=== PATIENT | male | born 1960 | race Caucasian/White ===

== ENCOUNTER 2022-03-23 15:23 | Emergency (ER) | payer OTHER, SELFPAY ==
--- NOTE | ~2022-03-23 | XR_ITS ---
EXAM: XR thoracic spine 3V DATE: 03/23/2022 16:01 HISTORY: upper back pain, no known injury . COMPARISON: None available. FINDINGS: Vertebral body alignment intact. Mild scoliosis. Vertebral body heights preserved. Multile dai degenerative disc disease.. No traumatic malalignment or fracture. Visualized lung parenchyma is clear. IMPRESSION: No acute fracture or traumatic malalignment detected in the thoracic spine. Reviewed, dictated and finalized at location K. IMPRESSION: No acute fracture or traumatic malalignment detected in the thoraci c spine.
[2022-03-23 15:36] VITALS: BP 122/73; PULSE 88; RESP 18; TEMP 36.6; O2SAT 100
--- NOTE | 2022-03-23 15:51 | ED.BACK ---
HPI - Back Pain/Injury General Chief Complaint: Back Pain/Injury Stated Complaint: back spasms Time Seen by Provider: 03/23/22 15:26 Source: patient Mode of arrival: ambulatory Limitations: no limitations History of Present Illness HPI Narrative: 61-year-old male presents to [facility] with complaints of mid back pain and spasms intermittently for the past 25 years. Patient reports that symptoms became worse 1 week ago. Patient denies recent injury. Patient has been taking [id number] ibuprofen and Tylenol with minimal relief. Patient reports that he has had intermittent numbness and tingling to his bilateral fingers for the past year. Patient currently is a primary care provider. Patient denies bowel or bladder problems. Patient reports that the spasming is worse if he works longer shifts at his job. Patient denies fever, body aches, chills, nausea, vomiting or diarrhea. Patient reports that he last had x-rays and MRI completed approximately 20 years ago but is unsure of the results. MD elicited complaint: back pain Pertinent past history: prior back pain Onset (ago): week(s) (1) Timing: intermittent Quality: spasming Location: thoracic spine Relieving factors: none Treatments prior to arrival: NSAIDS and acetaminophen Work related injury: No Related Data Allergies Allergy/AdvReac Type Severity Reaction Status Date / Time No Known Allergies Allergy Verified 03/23/22 15:42 Review of Systems Constitutional: Constitutional: Denies chills, Denies fatigue, Denies fever(s) and Denies weakness ENT: Denies vertigo and Denies dizziness Cardiovascular: Cardiovascular: Denies chest pain Gastrointestinal: Gastrointestinal: Denies abdominal pain, Denies diarrhea, Denies nausea and Denies vomiting Musculoskeletal: Musculoskeletal: Reports back pain, Denies joint swelling and Denies muscle cramps Integumentary/Breasts: Skin/Breast: Denies rash Neurologic: Denies vertigo and Denies dizziness PMFSH Comments At time of signature, I agree with nursing past medical, surgical, social and family history. There is no relevant family history pertinent to the presenting complaint. Exam Const: General: healthy appearing Nutritional Appearance: well nourished Orientation/consciousness: patient oriented x3 Limitations: no limitations Other: Patient appears jittery at times, spasming of back noted during examination Neck: Neck: normal visual inspection Resp: Effort & Inspection: normal respiratory effort and not labored Auscultation: clear to auscultation bilaterally, no crackles, no rhonchi and no wheezes Cardio: Rate: regular rate Rhythm: regular rhythm Heart sounds: no murmurs GI: Inspection: non-distended Auscultation: normal bowel sounds Back/Spine/Pelvis: Back: no CVA tenderness Other: Pain noted to thoracic region upon palpation. There is mild muscle spasm noted to right mid back. There is no open wounds, bruising, erythema or warmth noted. Skin: General skin exam: normal color Rashes: no rashes Wounds: no wounds Neuro: General: patient oriented x3 Cranial nerves: Yes Nystagmus not present Speech: normal speech Gait exam (Neuro): Normal gait present Extrem: General: normal to inspection, no clubbing, cyanosis or edema and no pedal edema Other: Hand grasps are equal and strong. Psych: Mental Status: mental status grossly normal Affect: normal affect Attitude: cooperative Course Course Level of Care: Express Care Visit Vital Signs Vital signs: Vital Signs Temperature 36.6 C 03/23/22 15:36 Pulse Rate 88 03/23/22 15:36 Respiratory Rate 18 03/23/22 15:36 Blood Pressure 122/73 03/23/22 15:36 Pulse Oximetry 100 03/23/22 15:36 Oxygen Delivery Room Air 03/23/22 15:36 Temperature 36.6 C 03/23/22 15:36 Pulse Rate 88 03/23/22 15:36 Respiratory Rate 18 03/23/22 15:36 Blood Pressure 122/73 03/23/22 15:36 Pulse Oximetry 100 03/23/22 15:36 Oxygen Delivery Room
== END 2022-03-23 16:20 | disposition home or self-care (01) ==
PROVIDERS: Emergency Provider Nurse Practitioner Family
DX: M54.6 Pain in thoracic spine (principal)
CPT/HCPCS: 72072; 99213; G0463

== ENCOUNTER 2024-09-29 21:35 | Emergency (ER) | payer OTHER, SELFPAY ==
--- NOTE | ~2024-09-29 | CT_ITS ---
CT cervical spine wo con Ordering provider: Tyra Goldman MD History: . neck pain . Comparison: None. Technique: CT of the cervical spine was performed without contrast. Sagittal and coronal reformatted images were also obtained and reviewed. Automated exposure control and iterative reconstruction ai hnique were employed. The dose-length product was 424.49 mGy-cm. FINDINGS: VERTEBRAE: No subluxation or acute fracture. The occipital condyles are intact. DISC SPACES: Narrowing of the disc C3-C4, C4-C5, C5-C6 and C6-C7. Multilevel facet joint disease. Mul tilevel uncovertebral joint osteoarthritic changes. Bilateral narrowing of the foramina at the level of C3-C4, C4-C5, C5-C6 and C6-C7. MRI is better for evaluation. PARASPINOUS SOFT TISSUES: Bilateral carotid calcifications.. IMPRESSION: No acute osseous abnormality cervical spine. Multilevel degenerative disc disease. Multilevel intervertebral foraminal narrowing. Reviewed, dictated and finalized at location A.
--- NOTE | ~2024-09-29 | CT_ITS ---
CT thoracic lumbar wo con Ordering provider: Tyra Goldman MD History: . b/l paresthesias . Comparison: None. Technique: CT thoracic spine without contrast. Automated exposure control and iterative reconstructi on technique were employed. The dose-length product was 1580.48 mGy-cm. FINDINGS: VERTEBRAE: Normal height and alignment. No subluxation or visible acute fracture. Degenerative change s of the spine. DISC SPACES: Multilevel degenerative disc disease in the upper and midthoracic area. Multilevel facet joint disease. Spinal canal stenosis seen at the level of C7 T8 with bilateral narrowing of the foramina and nerve r oot compression. Bilateral narrowing of the foramina at the level of T8-T9 and T9-T10 PARASPINOUS SOFT TISSUES: Normal. IMPRESSION: No acute osseous abnormality of the thoracic spine. Multilevel degenerative disc disease. Multilevel intervertebral foraminal narrowing. MRI is better for evaluation. CT thoracic lumbar wo con Ordering provider: Tyra Goldman MD History: 64 years Male with . b/l paresthesias . Comparison: None. Technique: CT lumbar spine without contrast. Automated exposure control and iterative reconstruction technique were employed. The dose-length product was 1580.48 mGy-cm. FINDINGS: VERTEBRAE: Normal height and alignment. No subluxation or visible acute fracture. Sacralization of L5 . DISC SPACES: Narrowing of the disc L3-L4.. Multilevel facet joint disease. Bilateral sacroiliitis. T12-L1: No stenosis. L1-L2: No stenosis. L2-L3: No stenosis. L3-L4: Mild spinal canal stenosis secondary to broad based disc bulge, facet arthropathy, and ligamen elisabeth flavum hypertrophy. Bilateral narrowing of the foramina with root compression. L4-L5: No stenosis. Diffuse disc bulge with bilateral narrowing of the foramina. L5-S1: No stenosis. PARASPINOUS SOFT TISSUES: Mild atheromatous disease of the abdominal aorta. IMPRESSION: Multilevel degenerative disc disease. Multilevel intervertebral foraminal narrowing and with nerve ro ot compression. MRI is better for evaluation. Reviewed, dictated and finalized at location A. IMPRESSION: No acute osseous abnormality of the thoracic spine. Multilevel degenerative disc disease. Multilevel intervertebral foraminal narrowing. MRI is better for evaluation. CT thoracic lumbar wo con Ordering provider: Tyra Goldman MD History: 64 years Male with . b/l paresthesias . Comparison: None. Technique: CT lumbar spine without contrast. Automated exposure control and it erative reconstruction technique were employed. The dose-length product was 158 0.48 mGy-cm. FINDINGS: VERTEBRAE: Normal height and alignment. No subluxation or visible acute fractur e. Sacralization of L5. DISC SPACES: Narrowing of the disc L3-L4.. Multilevel facet joint disease. Bilateral sacroiliitis. T12-L1: No stenosis. L1-L2: No stenosis. L2-L3: No stenosis. L3-L4: Mild spinal canal stenosis secondary to broad based disc bulge, facet ar thropathy, and ligamentum flavum hypertrophy. Bilateral narrowing of the forami na with root compression. L4-L5: No stenosis. Diffuse disc bulge with bilateral narrowing of the foramina . L5-S1: No stenosis. PARASPINOUS SOFT TISSUES: Mild atheromatous disease of the abdominal aorta. IMPRESSION: Multilevel degenerative disc disease. Multilevel intervertebral foraminal narro wing and with nerve root compression. MRI is better for evaluation.
[2024-09-29 21:33] VITALS: BP 148/100; PULSE 132; RESP 16; TEMP 36.6; O2SAT 97
--- NOTE | 2024-09-29 21:38 | ED.BACK ---
HPI - Back Pain/Injury General Chief Complaint: Back Pain/Injury Stated Complaint: Back pain Time Seen by Provider: 09/29/24 21:37 Source: patient and EMS Mode of arrival: EMS Limitations: no limitations History of Present Illness HPI Narrative: Patient presents via EMS. PD had attempted to arrest him at [facility] and he was complaining of what was initially reported as back pain, possibly due to a fall from a tree occuring anywhere from 1 week to 6 months ago by initial reports. Initially reported as beligerant but calm on my assessment. On my exam, patient denies any low back pain when asked multiple times. He states he is having acute neck pain because he hit this area when they were lifting him from his wheelchair. States he has bilateral lower extremity paresthesias along his lower extremities and radiating anteriorly into thighs but denying any saddle anesthesias. He states when he was being moved he was also experiencing pain in his groin because his intestines dropped into his balls. States this has been occuring for awhile but he can always get them to go back in, sometimes has to lean back and maneuver them. No loss of consciousness or seizure. For the baseline pain/issues he has, states he occasionally takes Tylenol or ibuprofen but no meds in general. He notes that he eats asparagus and that helps. He has never officially been told he has neuropathy but had gotten routine lead testing when he used to work at the [employer]. Has not gotten tested lately. Doesn' thave a PCP. Discusses various home remedies including magnesium but also unknown other substances. He did share one 24oz can of alcohol 8.0 (?) earlier today, states it was approximately equal to 2 beers. No fevers. Has been using a wheelchair for the past 3 months, on crutches prior to that for the issues he experiences with his legs and his inguinal hernias. Has never seen a surgeon to discuss hernia repair; does not want surgery. Prefers to heal myself. He states he had previously been on sodium painkillers. Related Data Allergies Allergy/AdvReac Type Severity Reaction Status Date / Time No Known Allergies Allergy Verified 09/29/24 21:41 [facility] Social History Social History Alcohol intake: current Substance use type: marijuana Other substance usage details: smokes 1/4 oz daily since 18yo Additional occupation/education comments: previously worked [employer] Exam Narrative: GENERAL: Well-appearing, well-nourished, and in no acute distress. HEAD: Normocephalic, atraumatic. EYES: Non injected, non icteric ENT: Nares clear, no rhinorrhea or epistaxis. NECK: Supple. No midline tenderness to palpation. Able to flex and extend. Points to an area along midline where he notes a bump; palpation normal without bony step offs. CHEST: Speaking in full sentences. No respiratory distress. HEART: Tachycardic rate and rhythm. . ABDOMEN: Soft, nondistended. No tenderness to palpation. : Bilateral reducible inguinal hernias, L > R. No overlying skin changes. Not taut, rigid. EXTREMITIES: No lower extremity edema. Moves all extremities. SKIN: Warm, dry, no rash. NEURO: No focal deficits. Alert and oriented x3. PSYCH: Odd but Congruent mood and affect. Course Vital Signs Vital signs: Vital Signs Temperature 97.8 F 09/29/24 21:33 Pulse Rate 132 H 09/29/24 21:33 Respiratory Rate 16 09/29/24 21:33 Blood Pressure 148/100 H 09/29/24 21:33 Pulse Oximetry 97 09/29/24 21:33 Oxygen Delivery Room Air 09/29/24 21:33 Temperature 97.8 F 09/29/24 21:33 Pulse Rate 112 H 09/29/24 23:41 Respiratory Rate 15 09/29/24 23:41 Blood Pressure 128/98 H 09/29/24 23:41 Pulse Oximetry 98 09/29/24 23:41 Oxygen Delivery Room Air 09/29/24 21:33 MDM - Back Pain/Injury MDM Narrative Medical decision making narrative: Patient brought in by EMS after reporting pain while being arrested by EMS. Initially reported as back pain, possibly due to falling from a tree at some point 1 week to 6 months ago but patient denies any low back pain at the time of my exam. He reports acute neck pain after being moved, peripheral neuropathy that has been chronic, and bilateral inguinal hernias which have also been present for awhile but which have been and remain reducible. In the emergency department he is afebrile with vital signs notable for tachycardia and hypertension. Imaging as below. Patient given analgesic medication while in the ED (but declining IV/IM). Discussed the need to follow up outpatient with PCP (provided referral) for his chronic issues such as neuropathy, discussion of other concerns like testing for lead exposure/poisoning, and proceeding with possible advanced imaging regarding spinal findings which we discussed. Also discussed the warning signs/features of inguinal hernias that would be cause for concern of a previously reducible hernia becoming incarcerated or strangulated. Patient initially hesitant and trying to negotiate with myself and police and he needs either admitted or let go 'otherwise my intestines will fall out and I'll . Again provided strict ED return precautions and urged follow up, provided general surgeon name/referral to discuss elective operative repair but that currently does not represent a surgical emergency. Otherwise stable for discharge. Fit for confinement paperwork filled out at the request of police. Patient provided written Rx for acetaminophen and ibuprofen. Differential Diagnosis Differential diagnosis: Likely lumbar radiculopathy and other (peripheranl neuropathy; fracture; inguinal hernia spectrum of disorders) Imaging Data Radiologist's impression: Impressions Cervical Spine CT 09/29/24 22:29 IMPRESSION: No acute osseous abnormality cervical spine. Multilevel degenerative disc disease. Multilevel intervertebral foraminal narrowing. Thoracic/Lumbar Spine CT 09/29/24 22:43 IMPRESSION: No acute osseous abnormality of the thoracic spine. Multilevel degenerative disc disease. Multilevel intervertebral foraminal narrowing. MRI is better for evaluation. CT thoracic lumbar wo con Ordering provider: Tyra Goldman MD History: 64 years Male with . b/l paresthesias . Comparison: None. Technique: CT lumbar spine without contrast. Automated exposure control and iterative reconstruction technique were employed. The dose-length product was 1580.48 mGy-cm. FINDINGS: VERTEBRAE: Normal height and alignment. No subluxation or visible acute fracture. Sacralization of L5. DISC SPACES: Narrowing of the disc L3-L4.. Multilevel facet joint disease. Bilateral sacroiliitis. T12-L1: No stenosis. L1-L2: No stenosis. L2-L3: No stenosis. L3-L4: Mild spinal canal stenosis secondary to broad based disc bulge, facet arthropathy, and ligamentum flavum hypertrophy. Bilateral narrowing of the foramina with root compression. L4-L5: No stenosis. Diffuse disc bulge with bilateral narrowing of the foramina. L5-S1: No stenosis. PARASPINOUS SOFT TISSUES: Mild atheromatous disease of the abdominal aorta. IMPRESSION: Multilevel degenerative disc disease. Multilevel intervertebral foraminal narrowing and with nerve root compression. MRI is better for evaluation. Discharge Plan Discharge Clinical Impression: Reducible inguinal hernia, Acute neck pain, Multilevel degenerative disc disease, Peripheral neuropathy Patient Disposition: Home, Self-Care Condition: Stable Instructions: Antibiotic Form, Inguinal Hernia (ED), Peripheral Neuropathy (ED), Degenerative Disc Disease (ED), Acute Neck Pain (ED) Additional Instructions: Because you do not have a primary care physician the name of doctors listed below. They can help you with some measure chronic issues like your neuropathy, desire for investigation of possible lead poisoning, etc. You also had evidence of multilevel degenerative disc disease with foraminal narrowing for which outpatient MRI would be a more sensitive test; your primary care physician can help arrange this. Acetaminophen/Tylenol (maximum 4000 mg per day) is safe to take with NSAIDs (ibuprofen/Motrin) for pain relief. As long as the inguinal hernias are reducible (able to be pushed back in), they are not a problem but you can follow up with the general surgeon listed below if you would like to consider elective repair later. Return if they no longer reduce. Return to the emergency department with any new or worsening symptoms. Patient Language: Bolivian Prescriptions: New ibuprofen 600 mg tablet 600 mg PO TID PRN (Reason: pain) Qty: 30 0RF acetaminophen 500 mg capsule 1,000 mg PO Q6H PRN (Reason: pain) Qty: 30 0RF No Action meloxicam 7.5 mg tablet 7.5 mg PO BID 7 Days Qty: 14 0RF methocarbamol 500 mg tablet 500 mg PO TID PRN (Reason: pain) Qty: 14 0RF Follow-up/Referrals: Amandeep Harris MD [Physician] - (General surgery) PHYSICIAN,SENIOR ADMINISTRATIVE SERVICES OFFICER [Primary Care Provider] - More Monte DO [Physician] - (Family practice/primary care physician) Time of Disposition: 23:21
[2024-09-29] MEDS: ACETAMINOPHEN 500 MG TABLET 1000 MG PO (22:05)
--- OUTSIDE RECORDS SUMMARY | 2024-09-29 22:28 | XMS_ITS | Clinical Summary ---
Author Organization [facility] Address [address] [place] [id number] Care Team Providers Care Evs Tech Name Role Phone Unavailable Primary Care Provider Unavailabl e Social History Tobacco Use Types Packs/Day Years Used Date Smoking Tobacco: Never Assessed Sex and Gender Information Value Date Recorded Sex Assigned at Not on file Legal Sex Male 12:09 PM [employer] Gender Identity Not on file Sexual Orientation Not on file Plan of Treatment Health Maintenance Due Date Last Done Comments Colorectal Cancer Screening Colonoscopy (10 Years) 1962 Annual Physical 1965 Hepatitis C 1980 DTaP, Tdap and Td Vaccines ( 1 - Tdap) 1981 Zoster Vaccines (1 of 2) 2012 COVID-19 Vaccine ( - 2023-2 5 season) 2024 Influenza Adult (#1) 2024 RSV Immunization or 60+ Years (1 - 1-dose 75+ series) 2037 Meningococcal B Vaccine Aged Out No l onger eligible based on patient's age to complete this topic Meningococcal Vaccine Aged Out No eda luke eligible based on patient's age to complete this topic Pneumococcal Vaccine: Pediat rics (0 to 5 Years) and At-Risk Patients (6 to 64 Years) Aged Out No longer eligible b ased on patient's age to complete this topic RSV Immunizations Under 20 Months Aged Out No longer eligible based on patient's age to complete this topic
[2024-09-29 22:31] VITALS: BP 121/96; PULSE 110; RESP 14; O2SAT 97
[2024-09-29] MEDS: IBUPROFEN 600 MG TABLET PO (23:34)
--- NOTE | 2024-09-29 23:39 | PC.NURSE ---
[place] PD contacted per their request due to pt having a warrant for arrest. [place] PD arrived just now to standby until [place] arrives. Pt being calm and cooperative in room at this time.
[2024-09-29 23:41] VITALS: BP 128/98; PULSE 112; RESP 15; O2SAT 98
== END 2024-09-30 00:08 | disposition home or self-care (01) ==
LOC: ANHED 22:26
PROVIDERS: Emergency Provider Student in an Organized Health Care Education/Training Program
DX: S19.9XXA Unspecified injury of neck, initial encounter (principal); K40.90 Unilateral inguinal hernia, without obstruction or gangrene, not specified as recurrent; G62.9 Polyneuropathy, unspecified; M50.31 Other cervical disc degeneration, high cervical region; X58.XXXA Exposure to other specified factors, initial encounter
CPT/HCPCS: 72125; 72128; 72131; 99284; A9270